=== PATIENT | female | born 2000 | race Hispanic/Latino ===

== ENCOUNTER 2025-07-14 20:28 | Emergency (ER) | payer SELFPAY ==
[~2025-07-14] VITALS: Ht 154.9 cm; Wt 87.5 kg
--- NOTE | 2025-07-14 20:57 | ERN ---
ED Note History of Present Illness Stated Complaint: C/O HEADACHE,COUGH, DIZZINESS Chief Complaint: Headache Time Seen by MD: 20:39 Dictation: This is a 24-year-old female who presented to the emergency room with complaints of cough congestion and a headache. She stated that she went to work and for the past 24 hours she has had cold-like symptoms with the head congestion. 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 She has feverish symptoms but did not document any fevers. She also indicated to me that due to work rules she can only use the bathroom when she is allowed the break. She denied any dysuria hematuria. Temperature 99 pulse 92 respirations 20 blood pressure 114/79 with a pulse oximetry of 98% on room air Allergies: Coded Allergies: No Known Allergies (Unverified Allergy, Unknown, 07/14/25) Home Meds Active Scripts Nitrofurantoin Monohyd/M-Cryst (Macrobid 100 mg Capsule) 100 Mg Capsule, 1 CAP PO BID for 7 Days, #14 CAP 0 Refills Prov:SAHIL POLLOCK MD 07/14/25 Past Medical History Past Medical History: No Pertinent History Surgical History: Family History: Negative Social History: Negative LMP: Jul 09, 2025 RN Note Reviewed/Agreed w/PFSH: Yes Review of System Dictation Constitutional: Positive for subjective fever,chills, and dizziness Eyes: Negative for injury, pain,redness, and discharge ENT: Negative for injury,pain or swelling Cardiovascular: Negative for chest pain, palpitations, and edema Respiratory: Negative for shortness of breath, POSITIVE FOR cough, and congestion Abdomen/GI: Negative for abdominal pain, nausea, vomiting, diarrhea, and constipation Back: Negative for injury and pain : Negative for injury, bleeding and discharge MS/Extremity: Negative for injury and deformity Skin: Negative for rash, and discoloration Neuro: Positive for sinus headache, denied weakness, numbness, tingling, and seizure Psych: Negative for suicide ideation, homicidal ideation, and hallucinations Initial Vital Sign VS Vital Signs Date Time Temp Pulse Resp B/P (MAP) Pulse Ox O2 Delivery O2 Flow Rate FiO2 07/14/25 20:31 99.0 92 20 114/79 97 Room Air 07/14/25 22:47 0 21 Physical Exam Dictation General: awake, alert, NAD obese female, appears congested with the nasal twang Head/Face: Normocephalic, atraumatic Eyes: PERRL, EOMI, vision at baseline ENT: oral cavity clear, TMs clear, no signs of infection no obvious tenderness on palpation of sinuses, nasal mucosa is very boggy Neck: Trachea midline, supple, no nuchal rigidity Cardiovascular: RRR, normal S1/S2, No MRGs, no JVD Respiratory: CTAB, no respiratory distress, No rales or wheezes Abdomen: Soft, non-tender, non-distended, normal bowel sounds, no guarding or rebound. Skin: Warm, dry, normal turgor, no rash MS/Extremity: Pulses equal, no cyanosis, neurovascular intact, FROM Neuro: COAx4, GCS 15, strength 5/5, CN 2-12 intact, normal cerebellar exam, normal gait, Psych: Normal behavior, mood, and affect normal Extremities-trace edema without any palpable cords, Homans sign is negative Results (Laboratory/Radiology) Laboratory/Radiology Laboratory Tests Test 07/14/25 22:00 07/14/25 22:31 Influenza Type A Antigen Negative For Type A Influenza Type B Antigen Negative For Type B SARS-CoV-2 Antigen (Rapid) PRESUMPTIVE NEGATIVE Group A Streptococcus Rapid negative (NEGATIVE) Urine Color LIGHT-YELLOW (YELLOW) Urine Appearance CLEAR (CLEAR) Urine pH 5.5 (5.0-8.0) Urine Specific [place] 1.023 (1.001-1.031) Urine Protein NEGATIVE mg/dL (NEGATIVE) Urine Glucose (UA) NEGATIVE mg/dL (NEGATIVE) Urine Ketones NEGATIVE mg/dL (NEGATIVE) Urine Occult Blood NEGATIVE (NEGATIVE) Urine Nitrate NEGATIVE (NEGATIVE) Urine Bilirubin NEGATIVE mg/dL (NEGATIVE) Urine Urobilinogen 0.2 mg/dL (0.2-1.0) Urine Leukocyte Esterase 25 Geovanni/uL (NEGATIVE) H Urine RBC 0-1 /HPF (0-1) Urine WBC 6-10 /HPF (0-1) H Urine Squamous Epithelial Cells RARE /HPF (0-2) Urine Bacteria FEW /HPF (None Seen) Urine Opiates Screen NEGATIVE (NEGATIVE) Urine Barbiturates Screen NEGATIVE (NEGATIVE) Urine Phencyclidine Screen NEGATIVE (NEGATIVE) Urine Amphetamines Screen NEGATIVE (NEGATIVE) Urine Benzodiazepines Screen NEGATIVE (NEGATIVE) Urine Cocaine Screen NEGATIVE (NEGATIVE) Urine Marijuana (THC) Screen NEGATIVE (NEGATIVE) Labs Reviewed?: Yes ED Course ED Course Orders Procedure Category Date Status Time Urinalysis Profile LAB 07/14/25 Complete 20:43 Drug Screen Urine LAB 07/14/25 Complete 20:43 Covid19 (Sars Antigen LAB 07/14/25 Complete Rapid) 21:21 Rapid (Group A Strep) LAB 07/14/25 Complete 21:21 Influenza Type A & B, LAB 07/14/25 Complete Rapid 21:21 Culture Urine DAGMAR 07/14/25 In Process 23:07 Vital Signs Date Time Temp Pulse Resp B/P (MAP) Pulse Ox O2 Delivery O2 Flow Rate FiO2 07/14/25 22:47 99.0 90 16 116/75 98 Room Air* 0 21 07/14/25 20:31 99.0 92 20 114/79 97 Room Air We will perform diagnostic labs, and administer medications according to the patient's complaint. Once the results are available, will review and personally interpreted the labs to rule out any acute life-threatening emergency the trach require immediate intervention and treatment. I will then re-evaluate the patient after treatment and diagnostic exams have return to determine whether the patient requires any further testing, can safely be discharged home or need further admission to hospital for additional treatment and evaluation. Medical Decision Making MDM Differential diagnosis: Influenza, COVID infection, streptococcal pharyngitis, acute viral syndrome, laryngitis, sinusitis This is a 24-year-old female who presented to the emergency room with complaints of cough congestion and a headache. She stated that she went to work and for the past 24 hours she has had cold-like symptoms with the head congestion. 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 She has feverish symptoms but did not document any fevers. She also indicated to me that due to work rules she can only use the bathroom when she is allowed the break. She denied any dysuria hematuria. Temperature 99 pulse 92 respirations 20 blood pressure 114/79 with a pulse oximetry of 98% on room air 10:45 p.m. swabs further viral studies sent strep are still pending 11:09 p.m. urinalysis is very abnormal with a mild increase in leuko esterase and WBCs. Urine drug screen is negative 11:30 p.m. swabs for influenza, COVID and Streptococcus were all negative. I updated the patient on all the lab results and possibly a viral syndrome and also a UTI in addition and recommended a short course of antibiotics. She will follow up with her primary care physician Rationale: Tests considered and ordered secondary to shared decision making include: Previous outside records reviewed: Old ER visits. Risk of complication and/or morbidity or mortality of patient management: None Medications-Per medication reconciliation Need for hospitalization: Patient does not meet criteria for hospitalization. Need for emergency major/minor surgery: No There are no social concerns with this patient. Prescription drug management Prescriptions will include symptomatic care Patient's prior external medical records from other ER visits were reviewed by me as indicated. Prior testing and results from previous visits were reviewed. Prior tests were taken into account with medical decision making and resource utilization, independent historian/historians were used to obtain complete medical history. I independently interpreted the test that were performed, results were reviewed by me and considered findings on radiology if ordered. Medical management and examination interpretation discussions were had by me with other qualified healthcare professionals as indicated for the patient's care. Problem List Problem List: (1) Acute URI (2) UTI (urinary tract infection) DX & DISP Disposition: Discharge Departure Impression: Primary Impression: Acute URI Additional Impression: UTI (urinary tract infection) Condition: Stable Scripts Nitrofurantoin Monohyd/M-Cryst (Macrobid 100 mg Capsule) 100 Mg Capsule 1 CAP PO BID for 7 Days, #14 CAP 0 Refills Prov: SAHIL POLLOCK MD 07/14/25 Additional Instructions: Patient and the caregiver have been informed of all the diagnostic tests and the imaging conducted during the today's visit to the emergency room and has verbalized understanding of the results I have personally reviewed and interpreted all diagnostic exams performed here in the ER today as well as the vital signs documented by the nursing staff. The patient is now being discharged to home and should follow up with the primary care physician or the specialist as directed by the ER staff. Follow-up with primary care provider in 1 to 2 days. Take medications as directed here in the emergency room. Okay to continue home medications unless otherwise discussed during your visit in the emergency room today. Return to your nearest emergency room if symptoms worsen or if there is no improvement. Call 911 if you need immediate assistance. Take Tylenol or Motrin [id number] as needed and if no contraindications are present. Increase oral hydration. A wound culture or urine culture was ordered here in the emergency room department please follow-up with primary care provider and advise them to get repeat ports from our facility. If you had any Ray wrap/splints that were applied here, please do not remove them until you see your primary care or specialty. Referrals: SELF,REFERRAL (PCP) SAHIL POLLOCK MD Jul 14, 2025 20:57
[2025-07-14 22:34] LABS: RAPID GROUP A STREP negative (NEGATIVE)
[2025-07-14 22:47] VITALS: BP 116/75; PULSE 90; RESP 16; TEMP 98.9; O2SAT 98
[2025-07-14 22:47] LABS: INFLUENZA TYPE A Negative For Type A (NEGATIVE); INFLUENZA TYPE B Negative For Type B (NEGATIVE)
[2025-07-14 22:50] LABS: COVID19 (SARS ANTIGEN RAPID) PRESUMPTIVE NEGATIVE (NEGATIVE)
[2025-07-14 22:54] LABS: APPEARANCE,URINE CLEAR (CLEAR); GLUCOSE, URINE (UA) NEGATIVE (NEGATIVE); LEUKOCYTE ESTERASE ,URINE 25 Leu/uL (NEGATIVE); NITRATE,URINE NEGATIVE (NEGATIVE); OCCULT BLOOD,URINE NEGATIVE (NEGATIVE)
[2025-07-14 23:02] LABS: AMPHET/METH SCREEN,URINE NEGATIVE (NEGATIVE); BARBITURATE SCREEN, URINE NEGATIVE (NEGATIVE); CANNABINOID SCREEN,URINE NEGATIVE (NEGATIVE); COCAINE SCREEN,URINE NEGATIVE (NEGATIVE)
[2025-07-14 23:04] LABS: ADD UA MICROSCOPIC YES
--- NOTE | 2025-07-14 23:04 | NUR ---
TRANSFERED CARE TO [facility] AT THIS TIME
[2025-07-14 23:06] LABS: SQUAMOUS EPITHELIAL CELL,UR RARE /HPF (0-2)
[2025-07-14] MEDS ORDERED: NITR100C4 PO (23:10)
== END 2025-07-14 23:40 | disposition home or self-care (01) ==
LOC: EDH 20:28
DX: J06.9 Acute upper respiratory infection, unspecified (principal); N39.0 Urinary tract infection, site not specified; R42 Dizziness and giddiness; Z20.822 Contact with and (suspected) exposure to COVID-19; Z98.890 Other specified postprocedural states
CPT/HCPCS: 80305; 81001; 87086; 87186; 87426; 87804; 87880; 99283